=== PATIENT | male | born 1940 | race Caucasian/White ===

== ENCOUNTER → 2016-09-01 | Outpatient (CLI) | payer MEDICARE, OTHER | LOC: GMAM 17:50 | PROVIDERS: ATTEND Family Medicine | DX: Z12.5 Encounter for screening for malignant neoplasm of prostate (principal) ==

== ENCOUNTER → 2017-03-15 | Outpatient (CLI) | payer MEDICARE, OTHER | END | disposition home or self-care (01) | LOC: GMAM 17:34 | PROVIDERS: ATTEND Family Medicine | DX: J30.1 Allergic rhinitis due to pollen (principal) ==

== ENCOUNTER → 2018-02-10 | Outpatient (CLI) | payer MEDICARE, OTHER | LOC: GMAM 17:54 | PROVIDERS: ATTEND Family Medicine | DX: I10 Essential (primary) hypertension (principal); F41.8 Other specified anxiety disorders; Z12.5 Encounter for screening for malignant neoplasm of prostate | CPT/HCPCS: 84439; 84443; G0103 ==

== ENCOUNTER → 2018-12-08 | Outpatient (CLI) | payer MEDICARE, OTHER ==
--- NOTE | 2018-12-08 15:58 | MRI ---
EXAM DESCRIPTION: Lumbar Spine w/o Contrast CLINICAL HISTORY: 78 years Male, LEG WEAKNESS COMPARISON: None available. TECHNIQUE: Multiplanar multiecho imaging of the lumbar spine was performed without intravenous contrast administration. FINDINGS: Changes of the normal lordotic curvature of the lumbar spine is noted. The vertebral body heights are well-maintained with no acute compression deformity. Multilevel intervertebral disc space narrowing is noted. The conus medullaris terminates at L1-L2 intervertebral disc space. The visualized spinal cord demonstrates no signal abnormality. L1-L2: Bilateral facet arthropathy with no canal stenosis or neural foraminal narrowing. L2-L3: Ligamentum flavum hypertrophy and facet arthropathy with no canal stenosis. There is mild to moderate bilateral neural foraminal narrowing. L3-L4: 3 mm diffuse disc bulge, ligamentum flavum hypertrophy and facet arthropathy with resultant mild central canal stenosis. The thecal sac measures 1 cm. Moderate to severe right and moderate left neural foraminal narrowing is noted secondary to facet arthropathy. L4-L5: 6.3 mm anterolisthesis of L4 over L5. 8 mm posterior disc bulge, ligamentum flavum hypertrophy and facet arthropathy with resultant mild central canal stenosis. The thecal sac measures 9 mm. Moderate to severe bilateral neural foraminal narrowing is identified. L5-S1: Disc desiccation and loss of disc height. 6 mm posterior disc bulge and facet arthropathy with no central canal stenosis. Moderate right and moderate to severe left neural foraminal narrowing is identified. Modic type II endplate degenerative changes are identified. The visualized prevertebral and paravertebral soft tissues appear unremarkable. 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 Electronically signed by: Jony Rhodes MD 12/08/2018 3:56 PM CDT
== END ==
LOC: MRI 11:00
PROVIDERS: ATTEND Family Medicine
DX: M51.36 Other intervertebral disc degeneration, lumbar region (principal)

== ENCOUNTER → 2018-12-16 | Outpatient (CLI) | payer MEDICARE, OTHER ==
--- NOTE | 2018-12-16 15:21 | MRI ---
EXAM DESCRIPTION: Shoulder,Left CLINICAL HISTORY: 78 years, Male, SHOULDER PAIN COMPARISON: None TECHNIQUE: MRI of the left shoulder was performed with multiplanar multi sequence imaging without intravenous contrast. FINDINGS: Rotator tendons: Mild articular and bursal surface partial-thickness tear of the supraspinatus tendon. No full-thickness rotator cuff tear or tendon retraction. The infraspinatus, subscapularis and teres minor tendons are intact without fluid-filled tear. Rotator muscles: No rotator cuff muscle atrophy. Glenoid labrum: Moderate circumferential degenerative tearing of the glenoid labrum. Acromion: The acromion morphology is type two. Mild left acromioclavicular joint osteoarthrosis with mild capsular hypertrophy. Bone and joints: Severe left glenohumeral joint osteoarthrosis with subchondral sclerosis and bulky inferiorly projecting humeral head osteophytes. There is flattening of the humeral head and retroversion of the glenoid. Glenoid subchondral bone marrow edema is favored to be degenerative. Small left shoulder joint effusion with mild synovitis. Several intra-articular bodies are present within the left shoulder joint and subscapular recess measuring up to 1.2 cm (within the subscapular recess) consistent with secondary osteochondromatosis. Large patchy areas of full-thickness/grade 4 cartilage loss involve both the humeral head and glenoid. Biceps tendon: Normal course and morphology of the biceps tendon long head within the bicipital groove. The biceps labral anchor appears intact. Soft tissues: No focal muscle strain or edema. IMPRESSION: 1. Severe left glenohumeral joint osteoarthrosis with flattening of humeral head, glenoid retroversion, and bulky osteophyte formation. Full-thickness cartilage loss involving the majority of the glenohumeral joint. 2. Multiple left glenohumeral joint loose intra-articular bodies (also present within the subscapularis recess) consistent with secondary osteochondromatosis. 3. Glenoid subchondral edema is favored to be degenerative. 4. Moderate circumferential degenerative tearing of the glenoid labrum. 5. Supraspinatus tendon partial-thickness tears. No full-thickness rotator cuff tear or tendon retraction. No muscle atrophy. Electronically signed by: Campos Sprague DO 12/16/2018 3:20 PM CDT
== END ==
LOC: MRI 11:00
PROVIDERS: ATTEND Family Medicine
DX: M19.012 Primary osteoarthritis, left shoulder (principal); M75.102 Unspecified rotator cuff tear or rupture of left shoulder, not specified as traumatic; M89.8X1 Other specified disorders of bone, shoulder

== ENCOUNTER → 2019-11-30 | Outpatient (CLI) | payer MEDICARE, OTHER | END | disposition home or self-care (01) | LOC: GMAM 16:36 | PROVIDERS: ATTEND Family Medicine | DX: Z12.5 Encounter for screening for malignant neoplasm of prostate (principal) ==